=== PATIENT | male | born 1950 | race Two or more races ===

== ENCOUNTER 2019-10-09 13:35 | Emergency (ER) | payer OTHER ==
[~2019-10-09] VITALS: Ht 177.8 cm; Wt 80.7 kg
[~2019-10-09 13:35] MED LIST: AMARYL; METFORMIN HCL1000 MG; PLAVIX75 MG
[2019-10-09] MEDS ORDERED: GLIMEPIRIDE2 MG (13:47)
[2019-10-09] MEDS ORDERED: KETO10TA2 PO (16:30)
[2019-10-09] MEDS ORDERED: SKELAXIN800 MG PO (16:30)
== END 2019-10-09 16:40 | disposition home or self-care (01) ==
LOC: ER 13:35
DX: S61.225A Laceration with foreign body of left ring finger without damage to nail, initial encounter (principal); M54.5 Low back pain; W27.4XXA Contact with kitchen utensil, initial encounter; Y93.G9 Activity, other involving cooking and grilling; Y92.010 Kitchen of single-family (private) house as the place of occurrence of the external cause; Y99.8 Other external cause status

== ENCOUNTER 2020-07-05 22:57 | Emergency (ER) | payer OTHER ==
[~2020-07-05] VITALS: Ht 177.8 cm; Wt 76.2 kg
[~2020-07-05 22:57] MED LIST changes: +GLIMEPIRIDE2 MG; +KETO10TA2 PO; +SKELAXIN800 MG PO
[2020-07-05] MEDS ORDERED: LIPITOR20 MG (23:21)
[2020-07-06] MEDS ORDERED: KETO10TA2 PO (01:58)
== END 2020-07-06 02:00 | disposition home or self-care (01) ==
LOC: ER 22:57
DX: S60.212A Contusion of left wrist, initial encounter (principal); W01.0XXA Fall on same level from slipping, tripping and stumbling without subsequent striking against object, initial encounter; Y93.89 Activity, other specified; Y92.018 Other place in single-family (private) house as the place of occurrence of the external cause; Y99.8 Other external cause status